=== PATIENT | female | born 2005 | race Caucasian/White ===

== ENCOUNTER → 2025-04-28 11:22 | Outpatient (BNVA) | payer BC, SELFPAY | PROVIDERS: Visit Provider Clinical Nurse Specialist Adult Health | DX: R59.0 Localized enlarged lymph nodes (principal) | CPT/HCPCS: 80053; 85025; 85651; 86140 ==

== ENCOUNTER 2025-05-11 14:14 | Outpatient (CLI) | payer BC, SELFPAY ==
--- NOTE | 2025-05-11 15:00 | USR_ITS ---
PROCEDURE INFORMATION: Exam: US Left Limited Joint or Other Non-Vascular Extremity Structure Exam date and time: 05/11/2025 2:42 PM Age: 19 years old Clinical indication: Other: Localized enlarged lymph nodes; Additional info: R59.0 - localized enlarged lymph nodes. Left groin lump for 2 weeks TECHNIQUE: Imaging protocol: US left limited joint or other nonvascular extremity structure. Real-time ultrasound with image documentation. Exam focused on the area of clinical interest. COMPARISON: No relevant prior studies available. FINDINGS: Soft tissues: . No loculated collections. There are multiple enlarged lymph nodes in the patient's left groin. The area of the most pain shows a superficial enlarged lymph node 1.6 cm x 1.2 cm x 0.7 cm the central vascularity of this lymph node is very high. This correlates with a reactive lymph node There is a hypervascular lymph node present in the left groin in the area of pain 8 mm x 8 mm x 6 mm. There are multiple lymph nodes in the left groin of varying sizes that do not show increased vascularity US/US soft tissue/extremity [id number] IMPRESSION: 1. Hypervascular lymph nodes in the left groin correlating with area of pain 2. Multiple nonvascular lymph nodes in the left groin soft tissues.
== END 2025-05-11 14:15 | disposition home or self-care (01) ==
LOC: RAD 14:15
PROVIDERS: Visit Provider Clinical Nurse Specialist Adult Health
DX: R59.0 Localized enlarged lymph nodes (principal)
CPT/HCPCS: 76882